=== PATIENT | female | born 1945 | race African-American/Black ===

== ENCOUNTER 2020-02-13 12:23 | Observation (INO) ==
[2020-02-13] MEDS ORDERED: ONDANSETRON 4 MG/2 ML VIAL IV STA (13:11)
[2020-02-13] MEDS ORDERED: SODIUM CHLORIDE 0.9% 1,000 ML IV STA (13:11)
[2020-02-13 14:22] LABS: Amorphous Crystals,Urine Moderate /HPF (Few); Apearance,Urine CLOUDY (Clear); Bilirubin,Urine Negative (Negative); Blood, Urine Negative (Negative); Glucose,Urine (UA) Negative (Negative); Ketones,Urine Negative (Negative); Nitrite,Urine Negative (Negative); Protein,Urine 100 MG/DL; RBC,Urine 5 /HPF (0-4); Squamous Epithelial Cell,Urine Occasional /HPF (0-10); Urine Color Yellow (Yellow); Urine Specific Gravity 1.017 (1.001-1.035); Urine Urobilinogen < 2.0 EU/DL (0.2-1.0)
[2020-02-13 14:29] LABS: Basophils % 0.9 % (0.0-0.8); Eosinophils % 0.9 % (0.00-10.9); Hematocrit 35.4 VOL% (35.7-47.0); Hemoglobin 11.3 GM/DL (12.0-16.0); Immature Granulocytes % 0.3 %; Immature Granulocytes Absolute 0.01 #; Lymphocytes # 1.3 10*3/uL (1.4-4.0); Lymphocytes % 36.4 % (21.3-54.2); Mean Corpuscular HGB Conc 31.9 GM/DL (32-36); Mean Corpuscular Volume 89.8 FL (87-102); Mean Platelet Volume 8.9 FL (9.6-12.0); Monocytes % 7.2 % (1.7-12.7); Neutrophils % 54.3 % (38.7-73.9); Platelet Count 261 T/CUMM (130-400); Red Blood Count 3.94 MC/CUMM (3.8-5.5); Red Cell Distribution Width 14.6 % (9.3-17.3); White Blood Count 3.5 T/CUMM (4-12)
[2020-02-13 15:16] LABS: Albumin 3.1 G/DL (3.4-5.0); Bilirubin,Total 0.6 MG/DL (0.2-1.0); Calcium 8.9 MG/DL (8.5-10.1); Osmolality,Calculated 271.7 MOS/KG (273-304)
[2020-02-13] MEDS ORDERED: ONDANSETRON 4 MG/2 ML VIAL IV PRN (16:08)
[2020-02-13] MEDS ORDERED: GLUCAGON 1 MG VIAL IM PRN (16:08)
[2020-02-13] MEDS ORDERED: hydrALAZINE 20 MG/1 ML VIAL IV PRN (16:08)
[2020-02-13] MEDS ORDERED: ACETAMINOPHEN 325 MG TABLET PO PRN (16:08)
[2020-02-13] MEDS ORDERED: DEXTROSE 50% 25 GM/50 ML VIAL IV PRN (16:08)
[2020-02-13] MEDS ORDERED: SODIUM CHLORIDE 0.45% 1,000 ML IV SCH (16:30)
[2020-02-13] MEDS: INSULIN LISPRO 100 UNIT/ML SUBCUT SCH (19:00)
[2020-02-13] MEDS ORDERED: ENOXAPARIN 40 MG/0.4 ML SYRINGE SUBCUT SCH (21:00)
[2020-02-14] MEDS: INSULIN LISPRO 100 UNIT/ML SUBCUT SCH (00:11)
[2020-02-14 00:13] VITALS: BP 130/68
[2020-02-14 05:39] LABS: Eosinophils # 0.1 10*3/uL (0.0-0.87); Eosinophils % 2.2 % (0.00-10.9); Hematocrit 35.5 VOL% (35.7-47.0); Hemoglobin 11.2 GM/DL (12.0-16.0); Lymphocytes # 1.4 10*3/uL (1.4-4.0); Lymphocytes % 32.7 % (21.3-54.2); Mean Corpuscular HGB Conc 31.5 GM/DL (32-36); Mean Corpuscular Volume 90.1 FL (87-102); Mean Platelet Volume 9.5 FL (9.6-12.0); Neutrophils % 55.1 % (38.7-73.9); Platelet Count 226 T/CUMM (130-400); Red Blood Count 3.94 MC/CUMM (3.8-5.5); Red Cell Distribution Width 14.7 % (9.3-17.3); White Blood Count 4.1 T/CUMM (4-12)
[2020-02-14 06:13] LABS: Albumin 2.7 G/DL (3.4-5.0); Bilirubin,Total 1.7 MG/DL (0.2-1.0); Calcium 8.9 MG/DL (8.5-10.1); Osmolality,Calculated 267.8 MOS/KG (273-304); Total Protein 6.3 G/DL (6.4-8.3)
== END 2020-02-14 10:25 | disposition home or self-care (01) ==
LOC: N.ED 12:23 → N.EDINP 12:23 → N.5E 18:29
PROVIDERS: ADMIT Internal Medicine; ATTEND Internal Medicine

== ENCOUNTER 2021-09-15 20:44 | Inpatient (IN) ==
[2021-09-16] MEDS ORDERED: SODIUM CHLORIDE 0.9% 1,000 ML IV STA (01:48)
[2021-09-16 01:55] LABS: Basophils # 0.1 10*3/uL (0.0-0.2); Basophils % 0.4 % (0.0-0.8); Eosinophils % 0.2 % (0.00-10.9); Hematocrit 35.9 VOL% (35.7-47.0); Hemoglobin 11.4 GM/DL (12.0-16.0); Immature Granulocytes % 0.6 %; Immature Granulocytes Absolute 0.07 #; Lymphocytes # 1.7 10*3/uL (1.4-4.0); Lymphocytes % 13.7 % (21.3-54.2); Mean Corpuscular HGB Conc 31.8 GM/DL (32-36); Mean Corpuscular Volume 87.1 FL (87-102); Mean Platelet Volume 10.6 FL (9.6-12.0); Monocytes # 0.7 10*3/uL (0.11-0.8); Monocytes % 5.4 % (1.7-12.7); Neutrophils % 79.7 % (38.7-73.9); Platelet Count 268 T/CUMM (130-400); Red Blood Count 4.12 MC/CUMM (3.8-5.5); Red Cell Distribution Width 15.9 % (9.3-17.3); White Blood Count 12.7 T/CUMM (4-12)
[2021-09-16 02:51] LABS: Amorphous Crystals,Urine Occasional /HPF (Few); Mucus,Urine Occasional /LPF (Occasional); RBC,Urine 1 /HPF (0-4); Squamous Epithelial Cell,Urine Occasional /HPF (0-10); Urine Appearance Clear (Clear); Urine Color Yellow (Yellow); Urine pH 6.5 (4.5-8.0)
[2021-09-16 02:52] LABS: Bilirubin,Urine Negative (Negative); Blood, Urine Trace mg/dL (Negative); Glucose,Urine (UA) Negative (Negative); Ketones,Urine Negative (Negative); Nitrite,Urine Negative (Negative); Protein,Urine Negative (Negative); Urine Specific Gravity 1.015 (1.001-1.035); Urine Urobilinogen 0.2 eU/dL (<2.0)
[2021-09-16 03:08] LABS: Alanine Aminotransferase 14 U/L (13-56); Albumin 2.9 G/DL (3.4-5.0); Alkaline Phosphatase 138 U/L (45-117); Aspartate Amino Transferase 26 U/L (0-37); Blood Urea Nitrogen 19 MG/DL (7-18); Carbon Dioxide 36 MMOL/L (21-32); Chloride 100 MMOL/L (98-107); Estimated Glom Filtration Rate 77 ML/MIN; Glucose 106 MG/DL (74-106); Osmolality,Calculated 284.1 MOS/KG (273-304); Sodium 142 MMOL/L (136-145); Total Protein 7.8 G/DL (6.4-8.2)
[2021-09-16 03:11] LABS: Calcium 14.4 MG/DL (8.5-10.1)
[2021-09-16] MEDS ORDERED: MAGNESIUM SULF RIDER 2 GM/50 ML PREMIX IV STA (03:30)
[2021-09-16] MEDS ORDERED: POTASSIUM CHLORIDE 20 MEQ TABLET PO STA (03:30)
[2021-09-16] MEDS ORDERED: ONDANSETRON 4 MG/2 ML VIAL IV PRN (03:57)
[2021-09-16 04:07] LABS: Barbiturates Screen,Urine Negative (Negative); Benzodiazepines Screen,Urine Negative (Negative); Cannabinoid Screen,Urine Negative (Negative); Opiate Screen,Urine Negative (Negative); Phencyclidine Screen,Urine Negative (Negative)
[2021-09-16 08:48] LABS: Albumin 2.8 G/DL (3.4-5.0); Bilirubin,Total 0.6 MG/DL (0.20-1.00); Osmolality,Calculated 287.8 MOS/KG (273-304); Potassium 3.7 MMOL/L (3.5-5.1); Total Protein 7.4 G/DL (6.4-8.2)
[2021-09-16 08:51] LABS: Calcium 14.2 MG/DL (8.5-10.1)
[2021-09-16] MEDS: PANTOPRAZOLE 40 MG TABLET PO SCH (09:09)
[2021-09-16] MEDS: ASPIRIN CHEW 81 MG TABLET PO SCH (09:09)
[2021-09-16] MEDS: ATORVASTATIN 40 MG TABLET PO SCH (09:09)
[2021-09-16] MEDS: ENOXAPARIN 40 MG/0.4 ML SYRINGE SUBCUT SCH (09:09)
[2021-09-16] MEDS: SODIUM CHLORIDE 0.9% 1,000 ML IV SCH ×2 (09:15→16:09)
[2021-09-16 13:06] LABS: Basophils # 0.1 10*3/uL (0.0-0.2); Basophils % 0.5 % (0.0-0.8); Eosinophils % 0.3 % (0.00-10.9); Hematocrit 33.8 VOL% (35.7-47.0); Hemoglobin 10.3 GM/DL (12.0-16.0); Immature Granulocytes % 0.7 %; Immature Granulocytes Absolute 0.08 #; Lymphocytes # 1.6 10*3/uL (1.4-4.0); Lymphocytes % 13.8 % (21.3-54.2); Mean Corpuscular HGB Conc 30.5 GM/DL (32-36); Mean Corpuscular Volume 89.2 FL (87-102); Mean Platelet Volume 10.1 FL (9.6-12.0); Monocytes # 0.7 10*3/uL (0.11-0.8); Monocytes % 6.2 % (1.7-12.7); Neutrophils % 78.5 % (38.7-73.9); Platelet Count 254 T/CUMM (130-400); Red Blood Count 3.79 MC/CUMM (3.8-5.5); Red Cell Distribution Width 16.1 % (9.3-17.3); White Blood Count 11.7 T/CUMM (4-12)
[2021-09-16] MEDS: carvediloL 3.125 MG TABLET PO SCH ×2 (16:07→23:05)
[2021-09-17 05:27] LABS: Basophils # 0.1 10*3/uL (0.0-0.2); Basophils % 0.5 % (0.0-0.8); Eosinophils % 0.2 % (0.00-10.9); Hematocrit 30.6 VOL% (35.7-47.0); Hemoglobin 9.5 GM/DL (12.0-16.0); Immature Granulocytes % 0.7 %; Immature Granulocytes Absolute 0.09 #; Lymphocytes # 1.5 10*3/uL (1.4-4.0); Lymphocytes % 11.3 % (21.3-54.2); Mean Corpuscular Volume 87.9 FL (87-102); Mean Platelet Volume 10.9 FL (9.6-12.0); Monocytes # 0.7 10*3/uL (0.11-0.8); Monocytes % 5.1 % (1.7-12.7); Neutrophils % 82.2 % (38.7-73.9); Platelet Count 278 T/CUMM (130-400); Red Blood Count 3.48 MC/CUMM (3.8-5.5); Red Cell Distribution Width 16.4 % (9.3-17.3); White Blood Count 12.9 T/CUMM (4-12)
[2021-09-17 05:40] LABS: Calcium 13.8 MG/DL (8.5-10.1); Osmolality,Calculated 295.1 MOS/KG (273-304); Potassium 3.1 MMOL/L (3.5-5.1)
[2021-09-17] MEDS ORDERED: MAGNESIUM SULF RIDER 2 GM/50 ML PREMIX IV ONE ×2 (07:42→08:00)
[2021-09-17] MEDS ORDERED: POTASSIUM CHLORIDE 20 MEQ TABLET PO ONE (08:00)
[2021-09-17] MEDS: ASPIRIN CHEW 81 MG TABLET PO SCH (09:22)
[2021-09-17] MEDS: PANTOPRAZOLE 40 MG TABLET PO SCH (09:23)
[2021-09-17] MEDS: ATORVASTATIN 40 MG TABLET PO SCH (09:23)
[2021-09-17] MEDS: ENOXAPARIN 40 MG/0.4 ML SYRINGE SUBCUT SCH (09:23)
[2021-09-17] MEDS: carvediloL 12.5 MG TABLET PO SCH ×2 (09:23→16:50)
[2021-09-17] MEDS: POTASSIUM CHLORIDE 10 MEQ TABLET PO SCH ×2 (10:30→21:05)
[2021-09-17] MEDS: SODIUM CHLORIDE 0.9% 1,000 ML IV SCH ×2 (11:14→21:05)
[2021-09-18] MEDS: SODIUM CHLORIDE 0.9% 1,000 ML IV SCH ×2 (06:23→13:29)
[2021-09-18 06:26] LABS: Calcium 10.1 MG/DL (8.5-10.1); Osmolality,Calculated 300.9 MOS/KG (273-304); Potassium 4.6 MMOL/L (3.5-5.1)
[2021-09-18] MEDS ORDERED: MAGNESIUM SULF RIDER 2 GM/50 ML PREMIX IV ONE (08:00)
[2021-09-18] MEDS: ENOXAPARIN 40 MG/0.4 ML SYRINGE SUBCUT SCH (08:36)
[2021-09-18] MEDS: POTASSIUM CHLORIDE 10 MEQ TABLET PO SCH ×2 (09:43→20:49)
[2021-09-18] MEDS: carvediloL 12.5 MG TABLET PO SCH ×2 (09:44→16:21)
[2021-09-18] MEDS: PANTOPRAZOLE 40 MG TABLET PO SCH (09:44)
[2021-09-18] MEDS: ATORVASTATIN 40 MG TABLET PO SCH (09:44)
[2021-09-18] MEDS: ASPIRIN CHEW 81 MG TABLET PO SCH (09:44)
[2021-09-18] MEDS: DEXT 5% NACL 0.45% KCL 20 MEQ 20 MEQ/1,000 ML BAG IV SCH (14:26)
[2021-09-18] MEDS: ACETAMINOPHEN 650 MG SUPP RECTAL PRN (16:17)
[2021-09-19 05:18] LABS: Basophils # 0.1 10*3/uL (0.0-0.2); Basophils % 0.4 % (0.0-0.8); Eosinophils # 0.1 10*3/uL (0.0-0.87); Eosinophils % 0.9 % (0.00-10.9); Hematocrit 30.9 VOL% (35.7-47.0); Hemoglobin 9.3 GM/DL (12.0-16.0); Immature Granulocytes % 0.6 %; Immature Granulocytes Absolute 0.08 #; Lymphocytes # 1.9 10*3/uL (1.4-4.0); Lymphocytes % 14.3 % (21.3-54.2); Mean Corpuscular HGB Conc 30.1 GM/DL (32-36); Mean Corpuscular Volume 90.4 FL (87-102); Mean Platelet Volume 11.3 FL (9.6-12.0); Monocytes # 0.7 10*3/uL (0.11-0.8); Monocytes % 4.9 % (1.7-12.7); Neutrophils % 78.9 % (38.7-73.9); Platelet Count 274 T/CUMM (130-400); Red Blood Count 3.42 MC/CUMM (3.8-5.5); Red Cell Distribution Width 16.7 % (9.3-17.3); White Blood Count 13.3 T/CUMM (4-12)
[2021-09-19] MEDS: DEXT 5% NACL 0.45% KCL 20 MEQ 20 MEQ/1,000 ML BAG IV SCH (05:25)
[2021-09-19 05:36] LABS: Calcium 13.7 MG/DL (8.5-10.1); Osmolality,Calculated 310.4 MOS/KG (273-304); Potassium 3.2 MMOL/L (3.5-5.1)
[2021-09-19 05:45] LABS: Eosinophils 2 % (0-10); Lymphocytes 11 % (20-55); Total Cells Counted 100
[2021-09-19 05:46] LABS: Platelet Estimate Adequate; Stomatocytes 1+
[2021-09-19] MEDS: ENOXAPARIN 40 MG/0.4 ML SYRINGE SUBCUT SCH (08:25)
[2021-09-19] MEDS: ATORVASTATIN 40 MG TABLET PO SCH (10:03)
[2021-09-19] MEDS: carvediloL 12.5 MG TABLET PO SCH ×2 (10:03→17:27)
[2021-09-19] MEDS: POTASSIUM CHLORIDE 10 MEQ TABLET PO SCH ×2 (10:03→21:19)
[2021-09-19] MEDS: ASPIRIN CHEW 81 MG TABLET PO SCH (10:03)
[2021-09-19] MEDS: PANTOPRAZOLE 40 MG TABLET PO SCH (10:04)
[2021-09-19] MEDS: LACTATED RINGERS 1,000 ML IV SCH (12:48)
[2021-09-19] MEDS: CALCITONIN 400 UNIT/2 ML VIAL SUBCUT SCH (15:19)
[2021-09-20] MEDS: LACTATED RINGERS 1,000 ML IV SCH (01:50)
[2021-09-20] MEDS ORDERED: METOPROLOL TARTRATE 5 MG/5 ML VIAL IV ONE (02:21)
[2021-09-20] MEDS: CALCITONIN 400 UNIT/2 ML VIAL SUBCUT SCH ×2 (02:58→14:27)
[2021-09-20 05:52] LABS: Calcium 11.9 MG/DL (8.5-10.1); Osmolality,Calculated 306.4 MOS/KG (273-304)
[2021-09-20] MEDS ORDERED: SODIUM CHLORIDE 0.45% 1,000 ML IV SCH (08:30)
[2021-09-20] MEDS ORDERED: METOPROLOL TARTRATE 5 MG/5 ML VIAL IV PRN (08:59)
[2021-09-20] MEDS ORDERED: METOPROLOL TARTRATE 5 MG/5 ML VIAL IV SCH (09:00)
[2021-09-20] MEDS: POTASSIUM CHLORIDE 10 MEQ TABLET PO SCH ×2 (11:35→21:27)
[2021-09-20] MEDS: PANTOPRAZOLE 40 MG TABLET PO SCH (11:35)
[2021-09-20] MEDS: ATORVASTATIN 40 MG TABLET PO SCH (11:35)
[2021-09-20] MEDS: ASPIRIN CHEW 81 MG TABLET PO SCH (11:35)
[2021-09-20] MEDS: METOPROLOL TARTRATE 25 MG TABLET PO SCH ×2 (11:35→21:27)
[2021-09-20] MEDS: carvediloL 12.5 MG TABLET PO SCH (11:41)
[2021-09-20] MEDS: ENOXAPARIN 40 MG/0.4 ML SYRINGE SUBCUT SCH ×2 (11:47→21:14)
[2021-09-20] MEDS ORDERED: DEXTROSE 5% NACL 0.9% 1,000 ML IV SCH (12:00)
[2021-09-20] MEDS ORDERED: ZOLEDRONIC ACID 4 MG/100 ML PREMIX IV ONE (13:30)
[2021-09-20] MEDS ORDERED: DEXTROSE 5% NACL 0.45% 1,000 ML IV SCH (13:30)
[2021-09-20] MEDS: SODIUM CHLORIDE 0.45% 1,000 ML IV SCH (14:27)
[2021-09-20] MEDS: AMINO ACIDS/DEXT/LYTES 4.25-5% 2,000 ML IV SCH (17:22)
[2021-09-20] MEDS: ACETAMINOPHEN 650 MG SUPP RECTAL PRN (19:43)
[2021-09-20 20:24] LABS: Basophils # 0.1 10*3/uL (0.0-0.2); Basophils % 0.5 % (0.0-0.8); Eosinophils % 0.3 % (0.00-10.9); Hematocrit 32.2 VOL% (35.7-47.0); Hemoglobin 9.9 GM/DL (12.0-16.0); Immature Granulocytes % 0.6 %; Immature Granulocytes Absolute 0.09 #; Lymphocytes # 2.5 10*3/uL (1.4-4.0); Lymphocytes % 16.4 % (21.3-54.2); Mean Corpuscular HGB Conc 30.7 GM/DL (32-36); Mean Corpuscular Volume 88.2 FL (87-102); Mean Platelet Volume 10.9 FL (9.6-12.0); Monocytes # 0.7 10*3/uL (0.11-0.8); Monocytes % 4.7 % (1.7-12.7); NRBC # 0.02 10*3/uL; Neutrophils % 77.5 % (38.7-73.9); Platelet Count 301 T/CUMM (130-400); Red Blood Count 3.65 MC/CUMM (3.8-5.5); Red Cell Distribution Width 16.7 % (9.3-17.3); White Blood Count 15.5 T/CUMM (4-12)
[2021-09-20 20:40] LABS: Calcium 11.5 MG/DL (8.5-10.1); Osmolality,Calculated 311.3 MOS/KG (273-304); Potassium 2.8 MMOL/L (3.5-5.1)
[2021-09-20] MEDS ORDERED: MAGNESIUM SULF RIDER 4 GM/100 ML PREMIX IV ONE (21:07)
[2021-09-20] MEDS: PIPERACILLIN/TAZOBACTAM 3,375 MG in SODIUM CHLORIDE 0.9% 100 ML IV SCH (21:14)
[2021-09-20 21:17] LABS: Lymphocytes 11 % (20-55); Total Cells Counted 100
[2021-09-20 21:18] LABS: Platelet Estimate Normal
[2021-09-20 21:56] LABS: Glucose,Urine (UA) Negative (Negative); Ketones,Urine Negative (Negative); Nitrite,Urine Negative (Negative); Protein,Urine Negative (Negative); Urine Appearance Clear (Clear); Urine Color Yellow (Yellow); Urine pH 7.5 (4.5-8.0)
[2021-09-20 21:57] LABS: Bilirubin,Urine Negative (Negative); Blood, Urine Trace mg/dL (Negative); Urine Urobilinogen 0.2 eU/dL (<2.0)
[2021-09-20 22:00] LABS: Hyaline Casts,Urine 1 /LPF (0-3); RBC,Urine 4 /HPF (0-4)
[2021-09-21] MEDS: CALCITONIN 400 UNIT/2 ML VIAL SUBCUT SCH (02:40)
[2021-09-21] MEDS: PIPERACILLIN/TAZOBACTAM 3,375 MG in SODIUM CHLORIDE 0.9% 100 ML IV SCH ×3 (05:24→21:56)
[2021-09-21 06:34] LABS: Basophils # 0.1 10*3/uL (0.0-0.2); Basophils % 0.5 % (0.0-0.8); Eosinophils % 0.3 % (0.00-10.9); Hematocrit 32.7 VOL% (35.7-47.0); Hemoglobin 9.7 GM/DL (12.0-16.0); Immature Granulocytes % 0.6 %; Lymphocytes # 1.9 10*3/uL (1.4-4.0); Lymphocytes % 11.9 % (21.3-54.2); Mean Corpuscular HGB Conc 29.7 GM/DL (32-36); Mean Corpuscular Volume 90.1 FL (87-102); Mean Platelet Volume 11.3 FL (9.6-12.0); Monocytes # 0.6 10*3/uL (0.11-0.8); Neutrophils % 82.7 % (38.7-73.9); Platelet Count 292 T/CUMM (130-400); Red Blood Count 3.63 MC/CUMM (3.8-5.5); White Blood Count 15.6 T/CUMM (4-12)
[2021-09-21 07:03] LABS: Osmolality,Calculated 313.3 MOS/KG (273-304); Potassium 2.9 MMOL/L (3.5-5.1)
[2021-09-21] MEDS: ENOXAPARIN 40 MG/0.4 ML SYRINGE SUBCUT SCH ×2 (09:01→21:54)
[2021-09-21] MEDS: ASPIRIN CHEW 81 MG TABLET PO SCH (09:03)
[2021-09-21] MEDS: POTASSIUM CHLORIDE 10 MEQ TABLET PO SCH ×2 (09:03→21:56)
[2021-09-21] MEDS: ATORVASTATIN 40 MG TABLET PO SCH (09:03)
[2021-09-21] MEDS: METOPROLOL TARTRATE 25 MG TABLET PO SCH ×2 (09:04→21:56)
[2021-09-21] MEDS: PANTOPRAZOLE 40 MG TABLET PO SCH (09:04)
[2021-09-21 10:24] LABS: Band Neutrophils 3 % (0-10); Eosinophils 1 % (0-10); Lymphocytes 10 % (20-55); Total Cells Counted 100
[2021-09-21 10:25] LABS: Hypochromia Slight; Platelet Estimate Normal; Polychromasia Slight; Target Cells Few
[2021-09-21] MEDS: POTASSIUM CHLORIDE RIDER 10 MEQ/100 ML PREMIX IV PRN ×5 (11:25→16:12)
[2021-09-21] MEDS: SODIUM CHLORIDE 0.45% 1,000 ML IV SCH (12:57)
[2021-09-21] MEDS: AMINO ACIDS/DEXT/LYTES 4.25-5% 2,000 ML IV SCH ×2 (15:14→16:15)
[2021-09-22] MEDS: SODIUM CHLORIDE 0.45% 1,000 ML IV SCH (03:51)
[2021-09-22] MEDS: ACETAMINOPHEN 650 MG SUPP RECTAL PRN (03:51)
[2021-09-22] MEDS: PIPERACILLIN/TAZOBACTAM 3,375 MG in SODIUM CHLORIDE 0.9% 100 ML IV SCH ×3 (05:13→21:39)
[2021-09-22] MEDS: ATORVASTATIN 40 MG TABLET PO SCH ×2 (10:16→10:26)
[2021-09-22] MEDS: PANTOPRAZOLE 40 MG TABLET PO SCH ×2 (10:16→10:26)
[2021-09-22] MEDS: METOPROLOL TARTRATE 25 MG TABLET PO SCH ×2 (10:17→21:39)
[2021-09-22] MEDS: POTASSIUM CHLORIDE 10 MEQ TABLET PO SCH ×3 (10:17→21:39)
[2021-09-22] MEDS: ASPIRIN CHEW 81 MG TABLET PO SCH ×2 (10:17→10:25)
[2021-09-22] MEDS: AMINO ACIDS/DEXT/LYTES 4.25-5% 2,000 ML IV SCH (19:00)
[2021-09-23] MEDS: SODIUM CHLORIDE 0.45% 1,000 ML IV SCH ×3 (04:34→19:06)
[2021-09-23] MEDS: PIPERACILLIN/TAZOBACTAM 3,375 MG in SODIUM CHLORIDE 0.9% 100 ML IV SCH ×3 (04:34→21:29)
[2021-09-23 06:21] LABS: Basophils # 0.1 10*3/uL (0.0-0.2); Basophils % 0.3 % (0.0-0.8); Eosinophils # 0.1 10*3/uL (0.0-0.87); Eosinophils % 0.8 % (0.00-10.9); Hemoglobin 7.9 GM/DL (12.0-16.0); Immature Granulocytes % 1.5 %; Immature Granulocytes Absolute 0.23 #; Lymphocytes # 1.9 10*3/uL (1.4-4.0); Lymphocytes % 11.7 % (21.3-54.2); Mean Corpuscular HGB Conc 30.4 GM/DL (32-36); Mean Platelet Volume 11.8 FL (9.6-12.0); Monocytes # 0.6 10*3/uL (0.11-0.8); Monocytes % 3.8 % (1.7-12.7); NRBC # 0.03 10*3/uL; Neutrophils % 81.9 % (38.7-73.9); Platelet Count 276 T/CUMM (130-400); Red Blood Count 2.92 MC/CUMM (3.8-5.5); Red Cell Distribution Width 16.9 % (9.3-17.3); White Blood Count 15.9 T/CUMM (4-12)
[2021-09-23 06:41] LABS: Band Neutrophils 4 % (0-10); Hypochromia 1+; Lymphocytes 5 % (20-55); Microcytosis 1+; Myelocytes 1 %; Total Cells Counted 100
[2021-09-23 06:42] LABS: Polychromasia Slight
[2021-09-23 06:47] LABS: Calcium 9.1 MG/DL (8.5-10.1); Osmolality,Calculated 313.3 MOS/KG (273-304); Potassium 2.7 MMOL/L (3.5-5.1)
[2021-09-23] MEDS: DEXTROSE 5% 500 ML IV SCH ×11 (07:33→19:56)
[2021-09-23] MEDS: POTASSIUM CHLORIDE RIDER 10 MEQ/100 ML PREMIX IV SCH ×4 (07:45→11:10)
[2021-09-23] MEDS ORDERED: POTASSIUM CHLORIDE 20 MEQ TABLET PO ONE (10:42)
[2021-09-23 11:31] LABS: Calcium 8.6 MG/DL (8.5-10.1); Osmolality,Calculated 300.1 MOS/KG (273-304); Potassium 3.2 MMOL/L (3.5-5.1)
[2021-09-23] MEDS ORDERED: FUROSEMIDE 20 MG/2 ML VIAL IV ONE (14:00)
[2021-09-23] MEDS ORDERED: LACTATED RINGERS 1,000 ML IV SCH (14:00)
[2021-09-23] MEDS: ATORVASTATIN 40 MG TABLET PO SCH (14:18)
[2021-09-23] MEDS: PANTOPRAZOLE 40 MG TABLET PO SCH (14:18)
[2021-09-23] MEDS: POTASSIUM CHLORIDE 10 MEQ TABLET PO SCH ×2 (14:18→21:13)
[2021-09-23] MEDS: METOPROLOL TARTRATE 25 MG TABLET PO SCH ×2 (14:18→21:14)
[2021-09-23] MEDS: ASPIRIN CHEW 81 MG TABLET PO SCH (14:19)
[2021-09-23] MEDS ORDERED: ZINC/COPPER/MANGANESE/SELENIUM 1 ML, MULTIVITAMIN INJ 10 ML, POTASSIUM CHLORIDE INJ 40 ... IV SCH (17:00)
[2021-09-23] MEDS: MENTHOL/ZINC OXIDE OINT 71 GM JAR TOP SCH ×2 (18:01→21:30)
[2021-09-23] MEDS: ACETAMINOPHEN 650 MG SUPP RECTAL PRN (22:07)
[2021-09-24] MEDS: SODIUM CHLORIDE 0.45% 1,000 ML IV SCH (02:10)
[2021-09-24] MEDS: PIPERACILLIN/TAZOBACTAM 3,375 MG in SODIUM CHLORIDE 0.9% 100 ML IV SCH ×3 (04:48→22:45)
[2021-09-24 06:16] LABS: Phosphorous 2.1 MG/DL (2.5-4.9)
[2021-09-24 06:55] LABS: Basophils % 0.2 % (0.0-0.8); Eosinophils # 0.1 10*3/uL (0.0-0.87); Eosinophils % 0.3 % (0.00-10.9); Hematocrit 24.9 VOL% (35.7-47.0); Hemoglobin 7.7 GM/DL (12.0-16.0); Immature Granulocytes % 1.5 %; Immature Granulocytes Absolute 0.24 #; Lymphocytes % 12.2 % (21.3-54.2); Mean Corpuscular HGB Conc 30.9 GM/DL (32-36); Mean Corpuscular Volume 87.7 FL (87-102); Mean Platelet Volume 11.6 FL (9.6-12.0); Monocytes # 0.7 10*3/uL (0.11-0.8); Monocytes % 4.2 % (1.7-12.7); NRBC # 0.03 10*3/uL; Neutrophils % 81.6 % (38.7-73.9); Platelet Count 275 T/CUMM (130-400); Red Blood Count 2.84 MC/CUMM (3.8-5.5); Red Cell Distribution Width 16.9 % (9.3-17.3); White Blood Count 16.5 T/CUMM (4-12)
[2021-09-24 07:03] LABS: Calcium 7.8 MG/DL (8.5-10.1); Osmolality,Calculated 286.8 MOS/KG (273-304); Potassium 2.7 MMOL/L (3.5-5.1)
[2021-09-24 07:16] LABS: Band Neutrophils 2 % (0-10); Eosinophils 1 % (0-10); Hypochromia 1+; Lymphocytes 14 % (20-55); Total Cells Counted 100
[2021-09-24 07:17] LABS: Microcytosis 1+; Platelet Estimate Normal
[2021-09-24] MEDS ORDERED: POTASSIUM CHLORIDE RIDER 10 MEQ/100 ML PREMIX IV SCH (08:00)
[2021-09-24] MEDS ORDERED: MAGNESIUM SULF INJ 3 GM in SODIUM CHLORIDE 0.9% 100 ML IV ONE (08:15)
[2021-09-24] MEDS ORDERED: DEXTROSE 10% 250 ML IV ONE (08:56)
[2021-09-24] MEDS ORDERED: POTASSIUM CHLORIDE IV ONE (11:00)
[2021-09-24] MEDS ORDERED: POTASSIUM PHOSPHATE IV ONE (11:00)
[2021-09-24] MEDS ORDERED: [UNRECOGNIZED DRUG - OTHER] IV ONE (11:00)
[2021-09-24] MEDS: ASPIRIN CHEW 81 MG TABLET PO SCH (12:44)
[2021-09-24] MEDS: MENTHOL/ZINC OXIDE OINT 71 GM JAR TOP SCH ×2 (12:45→22:55)
[2021-09-24] MEDS: ATORVASTATIN 40 MG TABLET PO SCH (12:45)
[2021-09-24] MEDS: POTASSIUM CHLORIDE 10 MEQ TABLET PO SCH ×2 (12:45→22:24)
[2021-09-24] MEDS: METOPROLOL TARTRATE 25 MG TABLET PO SCH ×2 (12:45→22:24)
[2021-09-24] MEDS: PANTOPRAZOLE 40 MG TABLET PO SCH (12:45)
[2021-09-24] MEDS: POTASSIUM CHLORIDE RIDER 10 MEQ/100 ML PREMIX IV SCH ×4 (16:38→19:57)
[2021-09-24] MEDS ORDERED: COPPER IV SCH (17:00)
[2021-09-24] MEDS ORDERED: ZINC IV SCH (17:00)
[2021-09-24] MEDS ORDERED: MANGANESE IV SCH (17:00)
[2021-09-24] MEDS ORDERED: SELENIUM IV SCH (17:00)
[2021-09-24] MEDS ORDERED: MULTIVITAMIN IV SCH (17:00)
[2021-09-24] MEDS ORDERED: [UNRECOGNIZED DRUG - OTHER] IV SCH (17:00)
[2021-09-25] MEDS: SODIUM CHLORIDE 0.45% 1,000 ML IV SCH ×2 (01:03→18:49)
[2021-09-25] MEDS: PIPERACILLIN/TAZOBACTAM 3,375 MG in SODIUM CHLORIDE 0.9% 100 ML IV SCH ×3 (04:33→22:06)
[2021-09-25 05:17] LABS: Basophils % 0.2 % (0.0-0.8); Eosinophils # 0.1 10*3/uL (0.0-0.87); Eosinophils % 0.2 % (0.00-10.9); Hematocrit 23.7 VOL% (35.7-47.0); Hemoglobin 7.5 GM/DL (12.0-16.0); Immature Granulocytes % 1.4 %; Lymphocytes # 2.1 10*3/uL (1.4-4.0); Lymphocytes % 10.1 % (21.3-54.2); Mean Corpuscular HGB Conc 31.6 GM/DL (32-36); Mean Corpuscular Volume 85.9 FL (87-102); Mean Platelet Volume 11.3 FL (9.6-12.0); Monocytes # 0.8 10*3/uL (0.11-0.8); Monocytes % 3.6 % (1.7-12.7); NRBC # 0.02 10*3/uL; Neutrophils % 84.5 % (38.7-73.9); Platelet Count 277 T/CUMM (130-400); Red Blood Count 2.76 MC/CUMM (3.8-5.5); Red Cell Distribution Width 16.5 % (9.3-17.3); White Blood Count 20.8 T/CUMM (4-12)
[2021-09-25 05:40] LABS: Calcium 7.7 MG/DL (8.5-10.1); Osmolality,Calculated 289.7 MOS/KG (273-304); Potassium 3.2 MMOL/L (3.5-5.1)
[2021-09-25 05:45] LABS: Phosphorous 1.8 MG/DL (2.5-4.9)
[2021-09-25 05:58] LABS: Hypochromia Slight; Lymphocytes 11 % (20-55); Platelet Estimate Normal; Total Cells Counted 100
[2021-09-25] MEDS ORDERED: DEXTROSE 10% 250 ML IV ONE (08:46)
[2021-09-25] MEDS ORDERED: DEXTROSE 10% 250 ML BAG IV ONE (09:08)
[2021-09-25] MEDS ORDERED: DEXTROSE 50% 25 GM/50 ML SYRINGE IV ONE ×2 (09:10→09:30)
[2021-09-25] MEDS ORDERED: LIDOCAINE 2% 5 ML VIAL ONE (09:38)
[2021-09-25] MEDS ORDERED: fentaNYL 100 MCG/2 ML VIAL ONE (09:39)
[2021-09-25] MEDS ORDERED: ETOMIDATE 20 MG/10 ML VIAL IV ONE (09:53)
[2021-09-25] MEDS ORDERED: PHENYLEPHRINE 1 MG/10 ML SYRINGE IV ONE (09:53)
[2021-09-25] MEDS: COPPER IV SCH (10:56)
[2021-09-25] MEDS: MULTIVITAMIN IV SCH (10:56)
[2021-09-25] MEDS: SELENIUM IV SCH (10:56)
[2021-09-25] MEDS: [UNRECOGNIZED DRUG - OTHER] IV SCH (10:56)
[2021-09-25] MEDS: ZINC IV SCH (10:56)
[2021-09-25] MEDS: MANGANESE IV SCH (10:56)
[2021-09-25] MEDS ORDERED: POTASSIUM PHOSPHATE 12 MMOL in SODIUM CHLORIDE 0.9% 100 ML IV ONE (11:00)
[2021-09-25] MEDS: POTASSIUM CHLORIDE 10 MEQ TABLET PO SCH ×2 (11:08→21:59)
[2021-09-25] MEDS: ENOXAPARIN 40 MG/0.4 ML SYRINGE SUBCUT SCH ×2 (11:08→21:59)
[2021-09-25] MEDS: ATORVASTATIN 40 MG TABLET PO SCH (11:08)
[2021-09-25] MEDS: MENTHOL/ZINC OXIDE OINT 71 GM JAR TOP SCH ×2 (11:08→21:59)
[2021-09-25] MEDS: METOPROLOL TARTRATE 25 MG TABLET PO SCH ×2 (11:08→21:59)
[2021-09-25] MEDS: ASPIRIN CHEW 81 MG TABLET PO SCH (11:08)
[2021-09-25] MEDS: PANTOPRAZOLE 40 MG TABLET PO SCH (11:09)
[2021-09-25] MEDS: THIAMINE 200 MG/2 ML VIAL IV SCH (14:07)
[2021-09-25] MEDS ORDERED: AMINO ACIDS/DEXT/LYTES 4.25-5% 2,000 ML IV SCH (17:00)
[2021-09-25] MEDS: ALBUTEROL/IPRATROPIUM 3 ML NEB RESP TX SCH ×2 (19:05→23:36)
[2021-09-26] MEDS: ACETAMINOPHEN 650 MG SUPP RECTAL PRN (00:18)
[2021-09-26] MEDS: ALBUTEROL/IPRATROPIUM 3 ML NEB RESP TX SCH ×6 (03:45→23:45)
[2021-09-26 05:08] LABS: Basophils # 0.1 10*3/uL (0.0-0.2); Basophils % 0.3 % (0.0-0.8); Eosinophils # 0.1 10*3/uL (0.0-0.87); Eosinophils % 0.3 % (0.00-10.9); Hematocrit 23.6 VOL% (35.7-47.0); Hemoglobin 7.3 GM/DL (12.0-16.0); Immature Granulocytes % 1.4 %; Immature Granulocytes Absolute 0.29 #; Lymphocytes # 2.1 10*3/uL (1.4-4.0); Lymphocytes % 10.4 % (21.3-54.2); Mean Corpuscular HGB Conc 30.9 GM/DL (32-36); Mean Corpuscular Volume 87.1 FL (87-102); Mean Platelet Volume 11.4 FL (9.6-12.0); Monocytes # 0.7 10*3/uL (0.11-0.8); Monocytes % 3.5 % (1.7-12.7); NRBC # 0.04 10*3/uL; Neutrophils % 84.1 % (38.7-73.9); Platelet Count 305 T/CUMM (130-400); Red Blood Count 2.71 MC/CUMM (3.8-5.5)
[2021-09-26 05:23] LABS: Calcium 7.3 MG/DL (8.5-10.1); Osmolality,Calculated 292.4 MOS/KG (273-304); Potassium 3.2 MMOL/L (3.5-5.1)
[2021-09-26] MEDS: SODIUM CHLORIDE 0.45% 1,000 ML IV SCH ×2 (05:30→16:44)
[2021-09-26] MEDS: PIPERACILLIN/TAZOBACTAM 3,375 MG in SODIUM CHLORIDE 0.9% 100 ML IV SCH ×3 (05:31→21:21)
[2021-09-26 05:54] LABS: Lymphocytes 9 % (20-55); Platelet Estimate Adequate; Total Cells Counted 100
[2021-09-26 05:55] LABS: Anisocytosis 1+; Polychromasia 1+
[2021-09-26 05:56] LABS: Hypochromia 1+
[2021-09-26] MEDS: METOPROLOL TARTRATE 25 MG TABLET PO SCH ×2 (09:36→21:17)
[2021-09-26] MEDS: ASPIRIN CHEW 81 MG TABLET PO SCH (09:36)
[2021-09-26] MEDS: POTASSIUM CHLORIDE 10 MEQ TABLET PO SCH ×2 (09:37→21:18)
[2021-09-26] MEDS: PANTOPRAZOLE 40 MG TABLET PO SCH (09:37)
[2021-09-26] MEDS: ATORVASTATIN 40 MG TABLET PO SCH (09:37)
[2021-09-26] MEDS: ENOXAPARIN 40 MG/0.4 ML SYRINGE SUBCUT SCH ×2 (09:37→21:18)
[2021-09-26] MEDS: THIAMINE 200 MG/2 ML VIAL IV SCH (09:38)
[2021-09-26] MEDS: POLYETHYLENE GLYCOL POWDER 17 GM PACK PEG SCH ×2 (09:38→21:31)
[2021-09-26] MEDS: MENTHOL/ZINC OXIDE OINT 71 GM JAR TOP SCH ×2 (09:39→21:17)
[2021-09-26] MEDS ORDERED: MAGNESIUM SULF RIDER 2 GM/50 ML PREMIX IV ONE ×2 (12:35→14:00)
[2021-09-26] MEDS: MANGANESE IV SCH (15:43)
[2021-09-26] MEDS: SELENIUM IV SCH (15:43)
[2021-09-26] MEDS: COPPER IV SCH (15:43)
[2021-09-26] MEDS: ZINC IV SCH (15:43)
[2021-09-26] MEDS: MULTIVITAMIN IV SCH (15:43)
[2021-09-26] MEDS: [UNRECOGNIZED DRUG - OTHER] IV SCH (15:43)
[2021-09-26] MEDS: DEXTROSE 5% 1,000 ML IV SCH (16:23)
[2021-09-26] MEDS ORDERED: POTASSIUM PHOSPHATE 15 MMOL in SODIUM CHLORIDE 0.9% 100 ML IV ONE (17:00)
[2021-09-27] MEDS: DEXTROSE 5% 1,000 ML IV SCH (02:20)
[2021-09-27] MEDS: ALBUTEROL/IPRATROPIUM 3 ML NEB RESP TX SCH ×6 (04:25→23:40)
[2021-09-27] MEDS: PIPERACILLIN/TAZOBACTAM 3,375 MG in SODIUM CHLORIDE 0.9% 100 ML IV SCH ×3 (04:35→21:55)
[2021-09-27 08:00] LABS: Basophils # 0.1 10*3/uL (0.0-0.2); Basophils % 0.3 % (0.0-0.8); Eosinophils # 0.1 10*3/uL (0.0-0.87); Eosinophils % 0.2 % (0.00-10.9); Hematocrit 25.3 VOL% (35.7-47.0); Immature Granulocytes % 1.5 %; Immature Granulocytes Absolute 0.32 #; Lymphocytes # 1.8 10*3/uL (1.4-4.0); Lymphocytes % 8.3 % (21.3-54.2); Mean Corpuscular HGB Conc 31.6 GM/DL (32-36); Mean Corpuscular Volume 86.1 FL (87-102); Mean Platelet Volume 11.5 FL (9.6-12.0); Monocytes # 0.6 10*3/uL (0.11-0.8); Monocytes % 2.7 % (1.7-12.7); NRBC # 0.05 10*3/uL; Platelet Count 463 T/CUMM (130-400); Red Blood Count 2.94 MC/CUMM (3.8-5.5); Red Cell Distribution Width 17.2 % (9.3-17.3); White Blood Count 21.5 T/CUMM (4-12)
[2021-09-27 08:28] LABS: Calcium 7.6 MG/DL (8.5-10.1); Osmolality,Calculated 292.6 MOS/KG (273-304); Potassium 4.1 MMOL/L (3.5-5.1)
[2021-09-27 08:29] LABS: Calcium 7.2 MG/DL (8.5-10.1); Osmolality,Calculated 292.6 MOS/KG (273-304); Potassium 4.5 MMOL/L (3.5-5.1)
[2021-09-27 08:35] LABS: Hypochromia 1+; Lymphocytes 7 % (20-55); Microcytosis 1+; Platelet Estimate Adequate; Total Cells Counted 100
[2021-09-27] MEDS: POTASSIUM CHLORIDE 10 MEQ TABLET PO SCH ×2 (10:13→22:12)
[2021-09-27] MEDS: POLYETHYLENE GLYCOL POWDER 17 GM PACK PEG SCH ×2 (10:13→22:12)
[2021-09-27] MEDS: METOPROLOL TARTRATE 25 MG TABLET PO SCH ×2 (10:13→22:12)
[2021-09-27] MEDS: PANTOPRAZOLE 40 MG TABLET PO SCH (10:13)
[2021-09-27] MEDS: ATORVASTATIN 40 MG TABLET PO SCH (10:13)
[2021-09-27] MEDS: ENOXAPARIN 40 MG/0.4 ML SYRINGE SUBCUT SCH ×2 (10:13→22:16)
[2021-09-27] MEDS: ASPIRIN CHEW 81 MG TABLET PO SCH (10:13)
[2021-09-27] MEDS: MENTHOL/ZINC OXIDE OINT 71 GM JAR TOP SCH ×2 (10:13→22:13)
[2021-09-27] MEDS: THIAMINE 200 MG/2 ML VIAL IV SCH (10:14)
[2021-09-27] MEDS ORDERED: MULTIVITAMIN INJ 10 ML, ZINC/COPPER/MANGANESE/SELENIUM 1 ML in AMINO ACIDS/DEXT/LYTES 4... IV SCH (17:00)
[2021-09-28] MEDS: ALBUTEROL/IPRATROPIUM 3 ML NEB RESP TX SCH ×2 (03:26→07:15)
[2021-09-28] MEDS: DEXTROSE 5% 1,000 ML IV SCH ×2 (04:40→13:13)
[2021-09-28] MEDS: PIPERACILLIN/TAZOBACTAM 3,375 MG in SODIUM CHLORIDE 0.9% 100 ML IV SCH (04:43)
[2021-09-28 05:59] LABS: Basophils # 0.1 10*3/uL (0.0-0.2); Basophils % 0.3 % (0.0-0.8); Eosinophils # 0.1 10*3/uL (0.0-0.87); Eosinophils % 0.5 % (0.00-10.9); Hematocrit 24.4 VOL% (35.7-47.0); Hemoglobin 7.5 GM/DL (12.0-16.0); Immature Granulocytes % 1.6 %; Immature Granulocytes Absolute 0.36 #; Lymphocytes # 2.1 10*3/uL (1.4-4.0); Lymphocytes % 9.1 % (21.3-54.2); Mean Corpuscular HGB Conc 30.7 GM/DL (32-36); Mean Corpuscular Volume 87.5 FL (87-102); Mean Platelet Volume 11.4 FL (9.6-12.0); Monocytes # 0.7 10*3/uL (0.11-0.8); Monocytes % 2.8 % (1.7-12.7); NRBC # 0.11 10*3/uL; Neutrophils % 85.7 % (38.7-73.9); Platelet Count 434 T/CUMM (130-400); Red Blood Count 2.79 MC/CUMM (3.8-5.5); Red Cell Distribution Width 17.2 % (9.3-17.3); White Blood Count 23.1 T/CUMM (4-12)
[2021-09-28 06:20] LABS: Calcium 7.3 MG/DL (8.5-10.1); Osmolality,Calculated 278.7 MOS/KG (273-304); Potassium 3.8 MMOL/L (3.5-5.1)
[2021-09-28] MEDS ORDERED: POTASSIUM PHOS/SOD PHOS POWDER 250 MG PACK PO ONE (09:24)
[2021-09-28] MEDS: THIAMINE 200 MG/2 ML VIAL IV SCH (09:32)
[2021-09-28] MEDS: POLYETHYLENE GLYCOL POWDER 17 GM PACK PEG SCH (09:32)
[2021-09-28] MEDS: ATORVASTATIN 40 MG TABLET PO SCH (09:33)
[2021-09-28] MEDS: ENOXAPARIN 40 MG/0.4 ML SYRINGE SUBCUT SCH (09:33)
[2021-09-28] MEDS: ASPIRIN CHEW 81 MG TABLET PO SCH (09:33)
[2021-09-28] MEDS: METOPROLOL TARTRATE 25 MG TABLET PO SCH (09:33)
[2021-09-28] MEDS: PANTOPRAZOLE 40 MG TABLET PO SCH (09:34)
[2021-09-28] MEDS: MENTHOL/ZINC OXIDE OINT 71 GM JAR TOP SCH (09:34)
[2021-09-28] MEDS: POTASSIUM CHLORIDE 10 MEQ TABLET PO SCH (09:34)
[2021-09-28] MEDS ORDERED: MAGNESIUM SULF RIDER 2 GM/50 ML PREMIX IV ONE (10:00)
[2021-09-28 11:49] VITALS: BP 118/52
== END 2021-09-28 13:00 | disposition hospice, home (50) | DRG 180 ==
LOC: EDBD → EDUNIT# → N.ED 20:44 → SUATTDRO 09-16 03:57 → N.EDINP 09-16 03:57 → N.5E 09-16 13:37
PROVIDERS: ADMIT Hospitalist; ATTEND Internal Medicine
PROC: EGDWPEG (ICD-10-PCS; 2021-09-25 07:05)